=== PATIENT | female | born 1955 | race Caucasian/White ===

== ENCOUNTER → 2018-04-22 | Outpatient (CLI) | payer MEDICARE, BC ==
--- NOTE | 2018-04-22 10:44 | XR ---
EXAMINATION TYPE: XR chest 2V DATE OF EXAM: 04/22/2018 COMPARISON: NONE HISTORY: Shortness of breath TECHNIQUE: Frontal and lateral views of the chest are obtained. FINDINGS: There is no focal air space opacity, pleural effusion, or pneumothorax seen. The cardiac silhouette size is within normal limits. The osseous structures are intact. There is a spinal curva ture, patient is rotated. Degenerative disc changes are noted in the cervical spine. IMPRESSION: No acute cardiopulmonary process.
--- NOTE | 2018-04-22 10:47 | XR ---
Left ankle HISTORY: Chronic pain 3 views of the left ankle There is soft tissue swelling present. Ossific density distal to the medial malleolus is well-cortica al and not felt likely to be acute. Alignment, bone mineralization, joint spaces are maintained. IMPRESSION: Soft tissue swelling, remote trauma. No acute fracture or dislocation. Ankle MRI may be o f benefit.
== END ==
LOC: RADXRYALE 09:43
DX: R06.02 Shortness of breath (principal); M79.89 Other specified soft tissue disorders
CPT/HCPCS: 71046